=== PATIENT | female | born 1945 | race American Indian/Alaskan Native ===

== ENCOUNTER 2017-02-14 10:49 | Inpatient (IN) | payer MEDICARE ==
[2017-02-14 11:56] LABS: Basophils % (Auto) 0.4 % (0.0-1.8); Eosinophils % (Auto) 1.9 % (0.0-4.3); Hematocrit 39.4 % (30.3-42.9); Mean Corpuscular HGB Conc 33 % (30-34); Mean Corpuscular Hemoglobin 29 pg (28-32); Mean Corpuscular Volume 88 fl (79-97); Platelet Count 169 K/mm3 (140-440); Red Blood Count 4.47 M/mm3 (3.65-5.03); Red Cell Distribution Width 13.3 % (13.2-15.2); White Blood Count 4.1 K/mm3 (4.5-11.0)
[2017-02-14 12:03] LABS: Anion Gap 13 mmol/L; BUN/Creatinine Ratio 10; Blood Urea Nitrogen 9 mg/dL (7-17); Calcium 9.4 mg/dL (8.4-10.2); Carbon Dioxide 33 mmol/L (22-30); Glucose 54 mg/dL (65-100); Potassium 3.2 mmol/L (3.6-5.0); Sodium 144 mmol/L (137-145)
[2017-02-14] MEDS ORDERED: MORPHINE IV ONE (15:22)
[2017-02-14] MEDS ORDERED: NITRO-BID 2% TP ONE (15:22)
[2017-02-14] MEDS ORDERED: ZOFRAN IV ONE (15:22)
--- NOTE | 2017-02-14 15:25 | Emergency Department Report ---
HPI - General Chief Complaint: Chest Pain Time Seen by Provider: 02/14/17 15:10 - HPI HPI: Room 4 The patient is a 71-year-old female presenting with a chief complaint of chest pain. Patient states her symptoms began 3 weeks ago with intermittent left- sided chest pain described as a pressure in nature. Patient states she has had left jaw paresthesia associated with the chest pain as well as shortness of breath. Patient denies nausea/vomiting or diaphoresis with her chest pain. The patient currently gets her pain score of 5/10. The patient states she's never had a stress test or cardiac catheterization Location: Left chest Duration: Intermittent 3 weeks Quality: Pressure Severity: 5/10 Modifying factors: [see above] Context: [see above] Mode of transportation: [not driving] ED Past Medical Hx - Past Medical History Previous Medical History?: Yes Hx Hypertension: Yes Hx Diabetes: Yes Additional medical history: high cholesterol - Surgical History Past Surgical History?: No - Family History Family history: no significant - Social History Smoking Status: Former Smoker (none 1 month) Substance Use Type: None - Medications Home Medications: Home Medications Medication Instructions Recorded Confirmed Last Taken Type Aspirin 81 mg PO DAILY 02/14/17 02/14/17 02/14/17 History Losartan/Hydrochlorothiazide 1 each PO DAILY 02/14/17 02/14/17 02/14/17 History [Losartan-Hctz 100-25 mg Tab] Lovastatin [Altoprev] 20 mg PO QPM 02/14/17 02/14/17 02/13/17 History Omeprazole 20 mg PO DAILY 02/14/17 02/14/17 02/13/17 History glipiZIDE [Glipizide] 5 mg PO DAILY 02/14/17 02/14/17 02/14/17 History ED Review of Systems ROS: Stated complaint: SORE BREAST AND CHEST PAIN Other details as noted in HPI Comment: All other systems reviewed and negative Constitutional: denies: chills, fever Eyes: denies: eye pain, eye discharge, vision change ENT: denies: ear pain, throat pain Respiratory: shortness of breath Cardiovascular: chest pain Endocrine: no symptoms reported Gastrointestinal: denies: abdominal pain, nausea, diarrhea Genitourinary: denies: urgency, dysuria, discharge Musculoskeletal: denies: back pain, joint swelling, arthralgia Skin: denies: rash, lesions Neurological: paresthesias (left jaw paresthesia) Psychiatric: denies: anxiety, depression Hematological/Lymphatic: denies: easy bleeding, easy bruising Physical Exam - Physical Exam Vital Signs: Vital Signs 02/14/17 02/14/17 02/14/17 10:58 14:24 14:30 Temperature 98.1 F Pulse Rate 79 62 61 Respiratory 16 14 19 Rate Blood Pressure 142/78 146/74 O2 Sat by Pulse 98 99 Oximetry 02/14/17 14:35 Temperature Pulse Rate 62 Respiratory 16 Rate Blood Pressure O2 Sat by Pulse 97 Oximetry Physical Exam: GENERAL: The patient is well-developed well-nourished female lying on stretcher not appearing to be in acute distress. [] HEENT: Normocephalic. Atraumatic. Extraocular motions are intact. Patient has moist mucous membranes. NECK: Supple. Trachea midline CHEST/LUNGS: Clear to auscultation. There is no respiratory distress noted. HEART/CARDIOVASCULAR: Regular. There is no tachycardia. There is no gallop rub or murmur. ABDOMEN: Abdomen is soft, nontender. Patient has normal bowel sounds. There is no abdominal distention. SKIN: There is no rash. There is no edema. There is no diaphoresis. NEURO: The patient is awake, alert, and oriented. The patient is cooperative. The patient has normal speech MUSCULOSKELETAL: There is no evidence of acute injury. ED Course Vital Signs 02/14/17 02/14/17 02/14/17 10:58 14:24 14:30 Temperature 98.1 F Pulse Rate 79 62 61 Respiratory 16 14 19 Rate Blood Pressure 142/78 146/74 O2 Sat by Pulse 98 99 Oximetry 02/14/17 14:35 Temperature Pulse Rate 62 Respiratory 16 Rate Blood Pressure O2 Sat by Pulse 97 Oximetry ED Medical Decision Making - Lab Data Result diagrams: 02/14/17 11:25 02/14/17 11:25 Laboratory Tests 02/14/17 02/14/17 02/14/17 11:25 11:25 14:06 WBC 4.1 L RBC 4.47 Hgb 13.0 Hct 39.4 MCV 88 MCH 29 MCHC 33 RDW 13.3 Plt Count 169 Lymph % (Auto) 47.0 H [place] % (Auto) 7.3 Eos % (Auto) 1.9 Baso % (Auto) 0.4 Lymph # 1.9 [place] # 0.3 Eos # 0.1 Baso # 0.0 Seg Neutrophils % 43.4 Seg Neutrophils # 1.8 Sodium 144 Potassium 3.2 L Chloride 101.0 Carbon Dioxide 33 H Anion Gap 13 BUN 9 Creatinine 0.9 Estimated GFR > 60 BUN/Creatinine Ratio 10 Glucose 54 L Calcium 9.4 Troponin T < 0.010 < 0.010 - EKG Data -: EKG Interpreted by Me EKG shows normal: sinus rhythm Rate: normal - EKG Data When compared to previous EKG there are: previous EKG unavailable Interpretation: nonspecific ST-T wave grisel (T-wave inversions in leads 2, 3, aVF , V4, V5) - Radiology Data Radiology results: image reviewed (chest x-ray) interpreted by me: Chest x-ray-no focal infiltrates, no pneumothorax - Differential Diagnosis ACS, GERD, pericarditis Critical care attestation.: If time is entered above; I have spent that time in minutes in the direct care of this critically ill patient, excluding procedure time. ED Disposition Clinical Impression: Chest pain, T wave inversion in EKG Disposition: DC-09 OP ADMIT IP TO THIS HOSP Is pt being admited?: Yes Does the pt Need Aspirin: Yes Condition: Fair Instructions: Chest Pain (ED) Referrals: PRIMARY CARE, [Primary Care Provider] - 3-5 Days Time of Disposition: 16:27 (hospitalist paged)
[2017-02-14] MEDS ORDERED: ASPIRIN PO ONE (15:28)
[2017-02-14] MEDS ORDERED: K-DUR PO ONE (15:28)
[2017-02-14] MEDS ORDERED: MORPHINE ONE ×2 (15:30→16:07)
--- NOTE | 2017-02-14 16:48 | XRay Report ---
AP CHEST: HISTORY: chest pain AP view of the chest demonstrates a normal mediastinal and cardiac contour with clear lungs and normal bony and soft tissue structures. IMPRESSION: Unremarkable AP chest.
--- NOTE | 2017-02-14 18:04 | History and Physical Report ---
History of Present Illness Date of examination: 02/14/17 Date of admission: 02/14/2017 Chief complaint: Chest pain History of present illness: Patient 71-year-old female with history of hypertension diabetes hyperlipidemia all well-controlled presents with an episode of chest pain described as left sided just under breasts. Severe due to pain was 8 out of 10 resolved with current morphine. Patient stated she was out in his yard doing lawn work and tripped and fell and landed directly on her chest and breast. Patient state at that time she was having by discomfort. The discomfort began at night when she turned over to get comfortable and noticed an acute pain on her left breast at that time. This was approximately 3 days after the fall. Patient states symptoms were never associated with shortness of breath no dizziness exertion no nausea vomiting no orthopnea no PND. Pain was essentially localized. No shortness of breath associated with the pain as well. She did present is chest pain-free and able to move without moist discomfort. Patient does have visual discomfort when she turns to the left. Patient denies ever smoking illicit drugs or drinking. Past History Past Medical History: diabetes, hypertension. denies: arthritis, cancer, COPD, ESRD, heart failure, migraines, PVD, renal failure, seizures, stroke, sarcoidosis Past Surgical History: No surgical history Social history: lives with family, full code, AND/DNR-allow natural . denies: smoking, alcohol abuse, prescription drug abuse, IV drug use Family history: diabetes Medications and Allergies Allergies Allergy/AdvReac Type Severity Reaction Status Date / Time No Known Allergies Allergy Unverified 02/14/17 11:04 Home Medications Medication Instructions Recorded Confirmed Last Taken Type Aspirin 81 mg PO DAILY 02/14/17 02/14/17 02/14/17 History Losartan/Hydrochlorothiazide 1 each PO DAILY 02/14/17 02/14/17 02/14/17 History [Losartan-Hctz 100-25 mg Tab] Lovastatin [Altoprev] 20 mg PO QPM 02/14/17 02/14/17 02/13/17 History Omeprazole 20 mg PO DAILY 02/14/17 02/14/17 02/13/17 History glipiZIDE [Glipizide] 5 mg PO DAILY 02/14/17 02/14/17 02/14/17 History Review of Systems Constitutional: no weight loss, no weight gain, no fever, no chills, no sweats, no night sweats, no anorexia, no fatigue, no malaise, no lethargy, no daytime sleepiness, no chronic pain Ears, nose, mouth and throat: no deferred, no tinnitis, no decreased hearing, no nose pain, no nasal congestion, no bleeding gums, no dental pain, no dysphagia, no hoarseness, no sore throat, no voice changes, no headache, no pain front of neck, no neck fullness/pressure Cardiovascular: chest pain, no rapid/irregular heart beat, no edema, no syncope , no lightheadedness, no shortness of breath, no dyspnea on exertion, no paroxysmal nocturnal dyspnea, no claudication, no phlebitis, no high blood pressure, no leg edema, no decreased exercise tolerance Respiratory: no cough, no excessive sputum, no shortness of breath, no pleurisy , no pain, no pain on inspiration, no respiratory infections Gastrointestinal: no abdominal pain, no nausea, no vomiting, no diarrhea, no constipation, no BRBPR, no heartburn, no indigestion, no excessive gas, no dyspepsia/bloating, no early satiety, no lactose intolerance Genitourinary Female: no dysmenorrhea, no pelvic pain, no flank pain, no dysuria , no vaginal odor, no genital sores Menstruation: no premenarcheal, no post hysterectomy, no ammenorrhea, no ammenorrhea on BC Musculoskeletal: no neck stiffness, no shooting leg pain, no hot joints, no morning stiffness, no myalgias, no limitation of motion, no gait dysfunction Integumentary: no pruritis, no sores Neurological: no head injury, no paralysis, no parathesias, no headaches, no migraines, no convulsions, no change in speech, no change in mentation, no memory loss, no double vision, no loss of vision, no hearing difficulties Hematologic/Lymphatic: no easy bruising, no easy bleeding, no lymphedema Allergic/Immunologic: no urticaria, no allergic rhinitis, no persistent infections, no gluten intolerance, no seasonal allergies Exam - Constitutional Vitals: Temp Pulse Resp BP Pulse Ox 98.1 F 62 18 173/87 97 02/14/17 10:58 02/14/17 15:38 02/14/17 16:08 02/14/17 15:38 02/14/17 14:35 General appearance: Present: no acute distress, well-nourished - EENT Eyes: Present: PERRL ENT: hearing intact, clear oral mucosa - Neck Neck: Present: supple, normal ROM - Respiratory Respiratory effort: normal Respiratory: bilateral: CTA - Cardiovascular Heart Sounds: Present: S1 & S2. Absent: rub, click - Extremities Extremities: pulses symmetrical, No edema Extremity abnormal: other (patient has a reproducible chest pain just up under the left breast at approximately T8 level) Peripheral Pulses: within normal limits - Abdominal General gastrointestinal: Present: soft, non-tender, non-distended, normal bowel sounds Female genitourinary: Present: normal - Integumentary Integumentary: Present: clear, warm, dry - Musculoskeletal Musculoskeletal: gait normal, strength equal bilaterally - Psychiatric Psychiatric: appropriate mood/affect, intact judgment & insight - Neurologic Neurologic: CNII-XII intact, moves all extremities Results - Labs CBC & Chem 7: 02/14/17 11:25 02/14/17 11:25 Labs: Laboratory Last Values WBC 4.1 K/mm3 (4.5-11.0) L 02/14/17 11:25 RBC 4.47 M/mm3 (3.65-5.03) 02/14/17 11:25 Hgb 13.0 gm/dl (10.1-14.3) 02/14/17 11:25 Hct 39.4 % (30.3-42.9) 02/14/17 11:25 MCV 88 fl (79-97) 02/14/17 11:25 MCH 29 pg (28-32) 02/14/17 11:25 MCHC 33 % (30-34) 02/14/17 11:25 RDW 13.3 % (13.2-15.2) 02/14/17 11:25 Plt Count 169 K/mm3 (140-440) 02/14/17 11:25 Lymph % (Auto) 47.0 % (13.4-35.0) H 02/14/17 11:25 [place]ukes % (Auto) 7.3 % (0.0-7.3) 02/14/17 11:25 Eos % (Auto) 1.9 % (0.0-4.3) 02/14/17 11:25 Baso % (Auto) 0.4 % (0.0-1.8) 02/14/17 11:25 Lymph # 1.9 K/mm3 (1.2-5.4) 02/14/17 11:25 Dukes # 0.3 K/mm3 (0.0-0.8) 02/14/17 11:25 Eos # 0.1 K/mm3 (0.0-0.4) 02/14/17 11:25 Baso # 0.0 K/mm3 (0.0-0.1) 02/14/17 11:25 Seg Neutrophils % 43.4 % (40.0-70.0) 02/14/17 11:25 Seg Neutrophils # 1.8 K/mm3 (1.8-7.7) 02/14/17 11:25 Sodium 144 mmol/L (137-145) 02/14/17 11:25 Potassium 3.2 mmol/L (3.6-5.0) L 02/14/17 11:25 Chloride 101.0 mmol/L (98-107) 02/14/17 11:25 Carbon Dioxide 33 mmol/L (22-30) H 02/14/17 11:25 Anion Gap 13 mmol/L 02/14/17 11:25 BUN 9 mg/dL (7-17) 02/14/17 11:25 Creatinine 0.9 mg/dL (0.7-1.2) 02/14/17 11:25 Estimated GFR > 60 ml/min 02/14/17 11:25 BUN/Creatinine Ratio 10 % 02/14/17 11:25 Glucose 54 mg/dL (65-100) L 02/14/17 11:25 Calcium 9.4 mg/dL (8.4-10.2) 02/14/17 11:25 Troponin T < 0.010 ng/mL (0.00-0.029) 02/14/17 15:37 - Imaging and Cardiology EKG: image reviewed Chest x-ray: image reviewed Assessment and Plan Advance Directives: Yes Plan of care discussed with patient/family: Yes - Patient Problems (1) Chest pain Current Visit: Yes Status: Acute Qualifiers: Chest pain type: C Ischemic chest pain type: I Plan to address problem: Her present chest pain is essentially atypical. Patient does have risk factors of hypertension hyperlipidemia and diabetes. Pain however is described as sharp on the left breast. This happened status post fall. The description of the pain is consistent with musculoskeletal pain associated with the fall. Patient has direct palpation of pain left intercostal muscles approximately T8. Since patient has multiple risk factors were admitted to rule out for MD follow echocardiogram and possible stress test. (2) T wave inversion in EKG Current Visit: Yes Status: Acute Plan to address problem: She did have T-wave inversions in 3 and aVF inferior leads. Does not appear to be acute at all. No baseline comparison. (3) Hypertension Current Visit: Yes Status: Acute Qualifiers: Hypertension type: H Plan to address problem: Patient appears to have optimal control of diabetes we'll continue NISREEN inhibitor for now. (4) Diabetes 1.5, managed as type 2 Current Visit: Yes Status: Acute Plan to address problem: Patient also has a palpable control of diabetes this particular time. We'll treat with sliding scale insulin only. We'll hold oral hypoglycemic.
[2017-02-14] MEDS ORDERED: TYLENOL PO PRN (18:10)
[2017-02-14] MEDS ORDERED: MILK OF MAGNESIA PO PRN (18:10)
[2017-02-14] MEDS ORDERED: DULCOLAX PR PRN (18:10)
[2017-02-14] MEDS ORDERED: SODIUM CHLORIDE FLUSH SYRINGE 10 ML IV PRN (18:10)
[2017-02-14] MEDS ORDERED: ZOFRAN IV PRN (18:10)
[2017-02-14] MEDS ORDERED: D50W (25GM) Syringe IV PRN (18:10)
[2017-02-14 18:44] LABS: Basophils % (Auto) 0.5 % (0.0-1.8); Eosinophils % (Auto) 1.3 % (0.0-4.3); Hematocrit 40.2 % (30.3-42.9); Hemoglobin 13.3 gm/dl (10.1-14.3); Mean Corpuscular HGB Conc 33 % (30-34); Mean Corpuscular Hemoglobin 29 pg (28-32); Mean Corpuscular Volume 89 fl (79-97); Platelet Count 171 K/mm3 (140-440); Red Blood Count 4.51 M/mm3 (3.65-5.03); Red Cell Distribution Width 13.6 % (13.2-15.2); White Blood Count 4.2 K/mm3 (4.5-11.0)
[2017-02-14] MEDS ORDERED: LOVENOX SUB-Q SCH (19:00)
[2017-02-14 19:01] LABS: Anion Gap 17 mmol/L; BUN/Creatinine Ratio 11; Blood Urea Nitrogen 9 mg/dL (7-17); Calcium 9.5 mg/dL (8.4-10.2); Carbon Dioxide 31 mmol/L (22-30); Chloride 99.7 mmol/L (98-107); Glucose 101 mg/dL (65-100); Potassium 3.6 mmol/L (3.6-5.0); Sodium 144 mmol/L (137-145)
[2017-02-15 09:03] VITALS: BP 128/63
[2017-02-15] MEDS ORDERED: GLUCOTROL PO SCH (10:00)
[2017-02-15] MEDS ORDERED: BABY ASPIRIN PO SCH (10:00)
[2017-02-15] MEDS ORDERED: NON-FORMULARY (Losartan/Hydrochlorothiazide [Losartan-Hctz 100-25 Mg Tab] 1 EACH) PO SCH (10:00)
[2017-02-15] MEDS ORDERED: ECOTRIN PO SCH (10:00)
[2017-02-15] MEDS ORDERED: COZAAR PO SCH (10:00)
[2017-02-15] MEDS ORDERED: HCTZ PO SCH (10:00)
[2017-02-15] MEDS ORDERED: LOVENOX SUB-Q SCH (12:00)
--- NOTE | 2017-02-15 15:04 | Discharge Summary ---
Providers - Providers Date of Admission: 02/15/17 09:39 Date of discharge: 02/15/17 Attending physician: DAQUAN PEDERSEN Primary care physician: MADINA LEWIS MD Hospitalization Reason for admission: chest pain Condition: Stable Pertinent studies: CXR ECHO Stress test Hospital course: Patient ia a 71-year-old female with history of hypertension, diabetes, hyperlipidemia, all well-controlle, who presented for left sided chest pain localized under her breast that started 3 days ago after a fall. Pain had old the caracthers of musculoskeletal, but due to her risk factors, she was admitted and acute coronary syndrome was excluded based on and negative cardiac enzymes, EKG and stress test. Discharged in stable condition. Advised to take Tylenol when necessary for pain; trying to avoid NSAIDs as she is already on NISREEN inhibitor and diuretic (concern for renal function). Discharge diagnoses: Musculoskeletal chest pain Hypertension Diabetes Hyperlipidemia Disposition: - TO HOME OR SELFCARE Time spent for discharge: 35 min Core Measure Documentation - Palliative Care Palliative Care/ Comfort Measures: Not Applicable - Core Measures Any of the following diagnoses?: none Exam - Physical Exam Narrative exam: Seen and examined; - Constitutional Vitals: Temp Pulse Resp BP Pulse Ox 98.4 F 62 16 128/63 93 02/15/17 09:02 02/15/17 09:02 02/15/17 09:02 02/15/17 09:02 02/15/17 09:02 General appearance: Present: no acute distress, well-nourished - EENT Eyes: Present: PERRL, EOM intact. Absent: scleral icterus, conjunctival injection - Neck Neck: Present: supple, normal ROM. Absent: masses or JVD - Respiratory Respiratory effort: normal Respiratory: bilateral: CTA, negative: rhonchi, wheezing - Cardiovascular Rhythm: regular Heart Sounds: Present: S1 & S2. Absent: systolic murmur - Extremities Extremities: no ischemia - Abdominal General gastrointestinal: Present: soft, non-tender, non-distended, normal bowel sounds - Neurologic Neurologic: CNII-XII intact, no focal deficits Plan Activity: advance as tolerated, fall precautions Diet: low cholesterol, low salt, diabetic Additional Instructions: Take Tylenol prn for pain. Avoid NSAIDs as already on Lisinopril and HCTZ. Follow up with: PRIMARY CAREMD [Primary Care Provider] - 3-5 Days
[2017-02-15] MEDS ORDERED: NON-FORMULARY (Lovastatin [Altoprev] 20 MG) PO SCH (18:00)
[2017-02-15] MEDS ORDERED: ZOCOR PO SCH (22:00)
--- NOTE | 2017-02-15 22:07 | Treadmill Report ---
THALLIUM STRESS TEST LEFT VENTRICLE: Left ventricular chamber size is within normal spread. Perfusion study demonstrates homogeneous uptake of the tracer in all segments. No significant defects identified. Normal apical thinning is noted. Gated analysis demonstrates normal left ventricular systolic function, ejection fraction 64%. CONCLUSION: Normal myocardial perfusion study. JOB# [id number] CA/NTS
== END 2017-02-15 17:17 | disposition home or self-care (01) | DRG 313 ==
LOC: ED 10:49 → 4A 18:10 → OBSVTOIN 02-15 09:39
PROVIDERS: ADMIT Internal Medicine; ATTEND Internal Medicine
DX: R07.89 Other chest pain (principal); E11.9 Type 2 diabetes mellitus without complications; I10 Essential (primary) hypertension; E78.5 Hyperlipidemia, unspecified; E78.00 Pure hypercholesterolemia, unspecified; Z87.891 Personal history of nicotine dependence; Z83.3 Family history of diabetes mellitus; Z79.82 Long term (current) use of aspirin
CPT/HCPCS: 36415; 71010; 78452; 80048; 82962; 84484; 85025; 93005; 93010; 93017; 93306; 96374; 96375; A9502; G0378; J1650; J2270; J2405